=== PATIENT | female | born 1985 | race Caucasian/White ===

== ENCOUNTER 2016-12-30 09:38 | Emergency (ER) | payer OTHER ==
[2016-12-30 09:46] VITALS: BP 140/65; PULSE 89; TEMP 98.3; BMI 26.2
[2016-12-30] MEDS ORDERED: ACETAMINOPHEN 325 MG TABLET (FP) PO ONE (10:54)
[2016-12-30] MEDS ORDERED: ACETAMINOPHEN 325 MG TABLET (FP) ONE (10:57)
--- NOTE | 2016-12-30 10:57 | PDOC ---
History of Present Illness - History of Present Illness Initial Comments: 12/30/16 11:14 31 year old female, with no significant PMH, who presents to the emergency room complaining of 2 days of nonradiating, intermittent and sharp right sided back pain that started yesterday afternoon. The back pain is not worse with movement and mostly hurts when touching it. Denies recent heavy lifting, or trauma. She also complains of a 5 days of runny nose, cough, and congestion. She reports pressure near her nose and teeth. No back pain. hematuria, numbness/tingling/ weakness. Denies fever, chills, nausea, vomiting. Denies abdominal pain. Denies dysuria, hematuria, urinary frequency. Allergies: NKDA 12/30/16 11:19 <Toshia Chinchilla - Last Filed: 12/30/16 11:19> - General History Source: Patient Exam Limitations: No Limitations <Archie Clark - Last Filed: 12/30/16 11:45> - General Chief Complaint: Pain Stated Complaint: RT SIDE PAIN, THROAT PAIN Time Seen by Provider: 12/30/16 10:30 Past History <Toshia Chinchilla - Last Filed: 12/30/16 11:19> - Past Medical History COPD: No Other medical history: NONE - Surgical History Gastric Stapling: No (GASTRIC SLEEVE) - Immunization History Immunization Up to Date: Yes - Suicide/Smoking/Psychosocial Hx Smoking History: Never smoked Have you smoked in the past 12 months: No Number of Cigarettes Smoked Daily: 0 Cigars Per Day: 0 Hx Alcohol Use: Yes (SOCIAL) Drug/Substance Use Hx: No <Archie Clark - Last Filed: 12/30/16 11:45> - Past Medical History Allergies/Adverse Reactions: Allergies Allergy/AdvReac Type Severity Reaction Status Date / Time No Known Drug Allergies Allergy Verified 12/30/16 10:14 coconuts Allergy Difficulty Uncoded 12/30/16 10:14 Breathing Home Medications: Ambulatory Orders Cephalexin Monohydrate [Keflex -] 500 mg PO Q6H #27 capsule 10/31/13 Oxycodone HCl/Acetaminophen [Percocet 5-325 mg Tablet] 1 tab PO Q6H PRN #10 tablet 10/31/13 Sulfamethoxazole/Trimethoprim [Bactrim DS -] 1 tab PO BID #13 tablet 10/31/13 Mupirocin Cream [Bactroban 2% Cream -] 1 applic TP BID #1 tube 11/02/13 Review of Systems - Review of Systems Able to Perform ROS?: Yes Comments:: 12/30/16 11:14 CONSTITUTIONAL: No reported: Fever, Chills, Diaphoresis, Generalized Weakness, Malaise, Loss of Appetite HEENT: Positive:Rhinorrhea, Nasal Congestion, No reported: Throat Pain, Throat Swelling, Difficulty Swallowing, Mouth Swelling , Eye Pain, Visual Changes CARDIOVASCULAR: No reported: Chest Pain, Syncope, Palpitations, Irregular Heart Rate, Lightheadedness, Peripheral Edema RESPIRATORY: + Cough, No reported: Shortness of Breath, SOB with Exertion, Orthopnea, Wheezing, Stridor, Hemoptysis GASTROINTESTINAL: No reported: Abdominal pain, Abdominal Distension, Nausea, Vomiting, Diarrhea, Constipation, Melena, Hematochezia GENITOURINARY: No reported: Dysuria, Frequency, Urgency, Hesitancy, Flank Pain, Genital Pain MUSCULOSKELETAL: Positive: Right sided back pain No reported: Joint Swelling, Neck Pain SKIN: No reported: Rash, Itching, Pallor HEMEATOLOGIC/IMMUNOLOGIC: No reported: Easy Bleeding, Easy Bruising, Lymphadenopathy, Frequent infections ENDOCRINE: No reported: Unexplained Weight Gain, Unexplained Weight Loss, Heat Intolerance , Cold Intolerance NEUROLOGIC: No reported: Headache, Focal Weakness, Paresthesias, Vertigo, Lightheadedness, Unsteady Gait, Seizure, Mental Status Changes, Incontinence PSYCHIATRIC: No reported: Anxiety, Depression 12/30/16 11:19 <Toshia Chinchilla - Last Filed: 12/30/16 11:19> *Physical Exam - Vital Signs Last Vital Signs Temp Pulse Resp BP Pulse Ox 98.3 F 89 20 140/65 98 12/30/16 09:42 12/30/16 09:42 12/30/16 09:42 12/30/16 09:42 12/30/16 09:42 - Physical Exam Comments: 12/30/16 11:14 GENERAL: The patient is awake, alert, and fully oriented, Nontoxic - in no acute distress. HEAD: Normocephalic, atraumatic. EYES: extraocular movements intact, sclera anicteric, conjunctiva clear. ENT: Normal voice, Moist mucous membranes. NECK: Normal range of motion, supple LUNGS: Breath sounds equal, clear to auscultation bilaterally. No wheezes, no rhonchi, no rales. HEART: Regular rate and rhythm, without murmur, rub or gallop. ABDOMEN: Soft, nontender, normoactive bowel sounds. No guarding, no rebound.No CVA tenderness EXTREMITIES: Normal range of motion, no edema. No clubbing or cyanosis. No cords , erythema, or tenderness. BACK: No CVA tenderness. +mild right flank tenderness to palpation (oblique abdomenals) NEUROLOGICAL: No facial asymmetry, Normal speech, PSYCH: Normal mood, normal affect. SKIN: Warm, Dry, normal turgor, 12/30/16 11:19 <Toshia Chinchilla - Last Filed: 12/30/16 11:19> - Vital Signs Last Vital Signs Temp Pulse Resp BP Pulse Ox 98.3 F 89 20 140/65 98 12/30/16 09:42 12/30/16 09:42 12/30/16 09:42 12/30/16 09:42 12/30/16 09:42 <Archie Clark - Last Filed: 12/30/16 11:45> ED Treatment Course - Medications Given in the ED: ED Medications Discontinued Medications Generic Name Dose Route Start Last Admin Trade Name Sher PRN Reason Stop Dose Admin Acetaminophen 650 mg 12/30/16 10:54 12/30/16 11:00 Tylenol - PO 12/30/16 10:55 650 mg ONCE ONE Administration <Toshia Chinchilla - Last Filed: 12/30/16 11:19> Medical Decision Making - Medical Decision Making 12/30/16 10:55 31y F presents with cold like symptoms and right sided pain that is worse with palpation. pt endorses cough, nasal congestion, sore throat. Pt denies any feve/ chills, nausea/vomiting, neck pain, diarrhea, dysuria. supsect her abd pain is uscular as it is exactly reprodicble to touch consider possible kidney stone - will ck ua for blood will give tylenol will obtain UA, hcg 12/30/16 11:42 pt ua / hcg negative suspect her pain is seconday to msk pain will dc the pt with pmd fu supportive care at home I discussed the physical exam findings, ancillary test results and final diagnoses with the patient. I answered all of the patient's questions. The patient was satisfied with the care received and felt comfortable with the discharge plan and treatment plan. The patient will call their primary care physician within 24 hours to arrange follow-up and will return to the Emergency Department with any new, persistent or worsening symptoms. <Archie Clark - Last Filed: 12/30/16 11:45> *DC/Admit/Observation/Transfer - Attestations Scribe Attestion: 12/30/16 11:14 Documentation prepared by TERRENCE Trevino, acting as associate medical director for Archie Clark MD. <Toshia Chinchilla - Last Filed: 12/30/16 11:19> - Discharge Dispostion Admit: No <Archie Clark - Last Filed: 12/30/16 11:45> Diagnosis at time of Disposition: Muscle pain, lumbar Upper respiratory infection Qualifiers: URI type: acute pharyngitis Pharyngitis/tonsillitis etiology: other specified organisms Qualified Code(s): J02.8 - Acute pharyngitis due to other specified organisms - Discharge Dispostion Disposition: HOME Condition at time of disposition: Improved - Referrals Referrals: Mike Bryan MD [Staff Physician] - - Patient Instructions Printed Discharge Instructions: DI for Nasal Congestion, DI for Viral Syndrome , DI for Low Back Pain Additional Instructions: Return to the emergency department immediately with ANY new, persistent or worsening symptoms including numbness, tingling, weakness, fevers or any other concerns. Take ibuprofen (400mg)/tylenol(650mg) every 6 hours for 2 days. Take sudafed for your nasal congestion. STay well hydrated Apply heat to your sore muscles. You MUST call and follow up with your doctor in 3-4 days for further evaluation of your symptoms. Your emergency department visit is not complete without a followup with your doctor for reevaluation.. Results were discussed with you. Please make sure your doctor reviews the results of your emergency evaluation.
[2016-12-30 11:31] LABS: URINE APPEARANCE CLEAR; URINE BILIRUBIN NEGATIVE (NEGATIVE); URINE BLOOD NEGATIVE (NEGATIVE); URINE COLOR LTYELLOW; URINE GLUCOSE (UA) NEGATIVE (NEGATIVE); URINE KETONE NEGATIVE (NEGATIVE); URINE NITRITE NEGATIVE (NEGATIVE); URINE PROTEIN NEGATIVE (NEGATIVE); URINE UROBILINOGEN NEGATIVE mg/dL (0.2-1.0)
[2016-12-30 17:29] LABS: URINE LEUK ESTERASE TRACE (NEGATIVE)
[2016-12-30 22:39] LABS: URINE BACTERIA MODERATE /hpf (NEGATIVE); URINE RBC 0-2 /hpf (0-3); YEAST FEW
== END 2016-12-30 11:52 | disposition home or self-care (01) ==
LOC: JER 09:38
DX: J02.8 Acute pharyngitis due to other specified organisms (principal); M79.1 Myalgia; M54.5 Low back pain
CPT/HCPCS: 81003; 81015; 84703; 99283-25

== ENCOUNTER 2017-05-19 08:38 | Emergency (ER) | payer OTHER ==
[2017-05-19 08:44] VITALS: BP 113/70; PULSE 65; TEMP 98.3; BMI 26.6
[2017-05-19] MEDS ORDERED: KETOROLAC TROMETHAMINE 60 MG/2 ML VIAL ONE (09:55)
[2017-05-19] MEDS ORDERED: KETOROLAC TROMETHAMINE 60 MG/2 ML VIAL IM ONE (09:55)
--- NOTE | 2017-05-19 09:55 | PDOC ---
History of Present Illness - General Chief Complaint: Back Pain Stated Complaint: FALL Time Seen by Provider: 05/19/17 09:16 History Source: Patient Exam Limitations: No Limitations - History of Present Illness Initial Comments: 05/19/17 09:56 Onset of low back pain primarily on the right side 2 weeks ago from unknown cause. States suffers from low back strain some years ago and was told had an L5 disc problem but with physical therapy and rest that resolved. Denies fevers , problems with urine or bowels. Denies recent exercise change , excessive walking or injury 05/19/17 12:45 Occurred: reports: last week Severity: reports: mild, moderate Pain Location: reports: back Method of Injury: Yes: unknown Modifying Factors: improves with: None Associated Symptoms (Fall): denies symptoms Past History - Travel Traveled outside of the country in the last 30 days: No Close contact w/someone who was outside of country & ill: No - Past Medical History Allergies/Adverse Reactions: Allergies Allergy/AdvReac Type Severity Reaction Status Date / Time No Known Drug Allergies Allergy Verified 05/19/17 08:44 coconuts Allergy Difficulty Uncoded 05/19/17 08:44 Breathing Home Medications: Ambulatory Orders Cyclobenzaprine HCl 10 mg PO Q8H PRN #14 tablet 05/19/17 COPD: No - Surgical History Gastric Stapling: No (GASTRIC SLEEVE) - Immunization History Immunization Up to Date: Yes - Suicide/Smoking/Psychosocial Hx Smoking History: Never smoked Have you smoked in the past 12 months: No Number of Cigarettes Smoked Daily: 0 Cigars Per Day: 0 Hx Alcohol Use: Yes (social) Drug/Substance Use Hx: No Review of Systems - Review of Systems Able to Perform ROS?: Yes Is the patient limited Thai proficient: Yes Constitutional: Yes: Symptoms Reported, See HPI, Loss of Appetite, Malaise. No : Chills, Fever HEENTM: Yes: See HPI. No: Symptoms Reported Respiratory: No: Symptoms reported Cardiac (ROS): No: Symptoms Reported ABD/GI: No: Symptoms Reported : No: Symptoms Reported Musculoskeletal: Yes: Symptoms Reported, See HPI, Back Pain Neurological: Yes: Symptoms reported, See HPI All Other Systems: Reviewed and Negative *Physical Exam - Vital Signs Last Vital Signs Temp Pulse Resp BP Pulse Ox 98.3 F 65 20 113/70 100 05/19/17 08:41 05/19/17 08:41 05/19/17 08:41 05/19/17 08:41 05/19/17 08:41 - Physical Exam General Appearance: Yes: Nourished, Appropriately Dressed, Apparent Distress, Mild Distress HEENT: positive: YOUSIF, TMs Normal, Pharynx Normal Respiratory/Chest: positive: Lungs Clear, Normal Breath Sounds Gastrointestinal/Abdominal: positive: Soft Musculoskeletal: positive: Normal Inspection, Decreased Range of Motion, Muscle Spasm (tense tight musculature around paravertebral spinous muscles and lumbar spine. Worse on the left than the right. However both sides are tender. Range of motion is limited secondary to the spasm. Neurovascular intact to feet.). negative: CVA Tenderness (L), Vertebral Tenderness Extremity: positive: Normal Capillary Refill, Normal Range of Motion Integumentary: positive: Normal Color, Dry, Warm. negative: Pale, Rash Neurologic: positive: pl sql programmer II-XII NML intact, Fully Oriented, Alert, Normal Mood/ Affect, Normal Response, Motor Strength 5/5 Progress Note - Progress Note Progress Note: Back strain/spasm. We'll treat with NSAIDs and cyclobenzaprine *DC/Admit/Observation/Transfer Diagnosis at time of Disposition: Back muscle spasm - Discharge Dispostion Disposition: HOME Condition at time of disposition: Stable Admit: No - Prescriptions Prescriptions: Cyclobenzaprine HCl 10 mg PO Q8H PRN #14 tablet PRN Reason: spasm - Referrals - Patient Instructions Printed Discharge Instructions: DI for Back Strain or Sprain Additional Instructions: Rest, no heavy lifting or exercise until pain is resolved Hot soaks to neck and low back as often as possible/hot showers or Jacuzzis No massage or therapy until spasm is gone Continue Tylenol 500mg hours for the next 3 days then as needed for pain and swelling Cyclobenzaprine 1-10mg every 8 hours as needed for spasm If not significant improvement within 24 hours with medication and rest regime, followup with private physician for change in medications and /or therapy. - Post Discharge Activity Forms/Work/School Notes: Back to Work
== END 2017-05-19 10:10 | disposition home or self-care (01) ==
LOC: JERFT 08:38
PROC: 3E0233Z Introduction of Anti-inflammatory into Muscle, Percutaneous Approach (ICD-10-PCS; principal; 2017-05-19)
DX: M62.830 Muscle spasm of back (principal)
CPT/HCPCS: 96372; 99281-25

== ENCOUNTER 2017-10-15 17:05 | Emergency (ER) | payer OTHER ==
[2017-10-15 17:25] VITALS: BP 123/73; PULSE 70; TEMP 97.9; BMI 27.3
--- NOTE | 2017-10-15 17:25 | PDOC ---
Rapid Medical Evaluation Time Seen by Provider: 10/15/17 17:21 Medical Evaluation: Allergies Allergy/AdvReac Type Severity Reaction Status Date / Time No Known Drug Allergies Allergy Verified 05/19/17 08:44 coconuts Allergy Difficulty Uncoded 05/19/17 08:44 Breathing 10/15/17 17:22 31y/o F with chronic back pain with L4-L5 DJD with nerve herniation, pending appt with neuro 11/03/17 p/w worsening LBP since today, denies trauma, B/B incontinence or saddle anesthesia +paraspinal tenderness noted on LS spine, R>L UA ordered Discharge Disposition - Diagnosis Back pain Qualifiers: Back pain location: low back pain Chronicity: chronic Back pain laterality: bilateral Sciatica presence: with sciatica Sciatica laterality: bilateral sciatica Qualified Code(s): M54.42 - Lumbago with sciatica, left side; M54.41 - Lumbago with sciatica, right side; G89.29 - Other chronic pain - Referrals Referrals: Clemencia Choudhary [Primary Care Provider] - - Patient Instructions - Post Discharge Activity
--- NOTE | 2017-10-15 17:44 | PDOC ---
History of Present Illness - General Chief Complaint: Back Pain Stated Complaint: BACK PAIN Time Seen by Provider: 10/15/17 17:21 History Source: Patient Exam Limitations: No Limitations - History of Present Illness Initial Comments: 10/15/17 17:56 CHIEF COMPLAINT: Lower back pain HISTORY OF PRESENT ILLNESS: This 31-year-old woman with history of lower back pain presents emergency Department with acute on chronic pain. Patient states she's had lower back pain for the past 7 months and is scheduled to see a neurosurgeon in October for reevaluation. Patient states she's had multiple x- rays and an MRI which revealed a slipped disc between L4-L5. Patient denies any recent trauma, bowel or bladder incontinence, urinary retention or saddle anesthesia. REVIEW OF SYSTEMS: GENERAL: Afebrile, denies any weakness RESPIRATORY: No cough, wheezing, or hemoptysis. CARDIAC: No chest pain or shortness of breath MUSCULOSKELETAL: Pain to generalized lower back. No point tenderness. Pain worse on right than left. SKIN : No erythema, no bruising, no deformity. GI/: Denies any abdominal pain, no urinary difficulty, incontinence or urinary retention. RECTAL: Denies any difficulty this A.m. NEUROLOGICAL: Denies any numbness or tingling. No neurosensory deficits. PHYSICAL EXAM: GENERAL: The patient is awake, alert, and fully oriented, in no acute distress. RESPIRATORY: Lungs clear bilaterally, no rhonchi wheezes or crackles CARDIAC: S1-S2 audible, no murmur rub or gallop MUSCULOSKELETAL: Pain to generalized lower back, nonradiating, no tingling or sensory deficit. Less than 2 second cap refill, +2 pedal pulses. Spasm present to paraspinous muscles of lower back GI/: Abdomen soft, nontender, nondistended. No rebound tenderness. No masses palpable. MUSCULOSKELETAL: No spinal point tenderness. Normal reflexive and no deficits to sensation or strength. RECTAL: Deferred patient with no neurological findings SKIN: Warm, Dry, normal turgor, no erythema, no edema no bruising. Past History - Past Medical History Allergies/Adverse Reactions: Allergies Allergy/AdvReac Type Severity Reaction Status Date / Time No Known Drug Allergies Allergy Verified 10/15/17 17:22 coconuts Allergy Difficulty Uncoded 10/15/17 17:22 Breathing Home Medications: Ambulatory Orders Methocarbamol [Robaxin -] 1,500 mg PO Q8H PRN #30 tablet 10/15/17 COPD: No Other medical history: DENIES. - Surgical History Gastric Stapling: Yes (GASTRIC SLEEVE) - Immunization History Immunization Up to Date: Yes - Suicide/Smoking/Psychosocial Hx Smoking History: Never smoked Have you smoked in the past 12 months: No Number of Cigarettes Smoked Daily: 0 Cigars Per Day: 0 Hx Alcohol Use: Yes (social) Drug/Substance Use Hx: No *Physical Exam - Vital Signs Last Vital Signs Temp Pulse Resp BP Pulse Ox 97.9 F 70 20 123/73 100 10/15/17 17:22 10/15/17 17:22 10/15/17 17:22 10/15/17 17:22 10/15/17 17:22 Medical Decision Making - Medical Decision Making 10/15/17 17:56 A/P: 31-year-old female with history of L4-L5 herniation with acute on chronic lower back pain Tenderness to palpation in the paraspinous muscles right greater than left Full sensation noted to bilateral lower extremities to both medial and lateral aspects Strength 5/5 bilateral lower extremities Acute exacerbation of chronic lower back pain UA, UPT, Toradol, Valium 10/15/17 19:07 Patient reports her pain is currently 3-4/10. She describes a level of 3 as acceptable is requesting discharge at this time. Patient is able to ambulate after receiving medication. I will discharge the patient home with prescription for Robaxin and patient has been encouraged to follow up with her neurosurgeon as previously scheduled on November 03. *DC/Admit/Observation/Transfer Diagnosis at time of Disposition: Back pain Qualifiers: Back pain location: low back pain Chronicity: chronic Back pain laterality: bilateral Sciatica presence: with sciatica Sciatica laterality: bilateral sciatica Qualified Code(s): M54.42 - Lumbago with sciatica, left side - Discharge Dispostion Disposition: HOME Condition at time of disposition: Stable Decision to Admit order: No - Prescriptions Prescriptions: Methocarbamol [Robaxin -] 1,500 mg PO Q8H PRN #30 tablet PRN Reason: Back Pain - Referrals Referrals: Clemencia Choudhary [Primary Care Provider] - - Patient Instructions Additional Instructions: Rest, no heavy lifting or exercise until pain is resolved Hot soaks to neck and low back as often as possible/hot showers or Jacuzzis No massage or therapy until spasm is gone Continue ibuprofen 2-200 mg tablets every 6 hours for the next 3 days then as needed for pain and swelling Robaxin 1500mg every 8 hours as needed for spasm If not significant improvement within 24 hours with medication and rest regime, followup with private physician for change in medications and /or therapy. - Post Discharge Activity
[2017-10-15 17:49] LABS: URINE APPEARANCE CLEAR; URINE BILIRUBIN NEGATIVE (<2.0 mg/dL); URINE COLOR YELLOW; URINE GLUCOSE (UA) NEGATIVE (NEGATIVE); URINE KETONE TRACE (NEGATIVE); URINE NITRITE NEGATIVE (NEGATIVE); URINE PROTEIN NEGATIVE (NEGATIVE); URINE UROBILINOGEN NEGATIVE mg/dL (0.2-1.0)
[2017-10-15 17:51] LABS: HCG,QUALITATIVE URINE Negative
[2017-10-15 17:54] LABS: URINE LEUK ESTERASE 1+ (NEGATIVE)
[2017-10-15 17:55] LABS: EPI CELLS RARE /HPF (FEW); URINE MUCUS RARE
[2017-10-15] MEDS ORDERED: KETOROLAC TROMETHAMINE 30 MG/1 ML VIAL IM ONE (17:55)
[2017-10-15] MEDS ORDERED: diazePAM 5 MG TABLET PO ONE (17:55)
[2017-10-15] MEDS ORDERED: KETOROLAC TROMETHAMINE 30 MG/1 ML VIAL ONE (17:56)
[2017-10-15] MEDS ORDERED: diazePAM 5 MG TABLET ONE (17:57)
== END 2017-10-15 19:09 | disposition home or self-care (01) ==
LOC: JERFT 17:05
PROC: 3E0233Z Introduction of Anti-inflammatory into Muscle, Percutaneous Approach (ICD-10-PCS; principal; 2017-10-15)
DX: M54.41 Lumbago with sciatica, right side (principal); G89.29 Other chronic pain
CPT/HCPCS: 81003; 81015; 84703; 96372; 99281-25

== ENCOUNTER 2018-05-12 12:11 | Emergency (ER) | payer OTHER ==
[2018-05-12 12:37] VITALS: BP 118/68; PULSE 50; TEMP 98.5; BMI 27.4
[2018-05-12] MEDS ORDERED: KETOROLAC TROMETHAMINE 30 MG/1 ML VIAL IVPUSH ONE (12:46)
[2018-05-12] MEDS ORDERED: METOCLOPRAMIDE HCL INJECTION 10 MG/2 ML VIAL IVPB ONE (12:46)
[2018-05-12] MEDS ORDERED: SODIUM CHLORIDE 1,000 ML IV STA (12:46)
[2018-05-12 13:46] LABS: HCG,QUALITATIVE URINE Negative
[2018-05-12] MEDS ORDERED: METOCLOPRAMIDE HCL INJECTION 10 MG/2 ML VIAL ONE (13:58)
[2018-05-12] MEDS ORDERED: KETOROLAC TROMETHAMINE 30 MG/1 ML VIAL ONE (13:58)
[2018-05-12 14:01] LABS: BASO % 0.9 % (0-2.0); EOS % 1.4 % (0-4.5); HEMATOCRIT 36.9 % (32.4-45.2); HEMOGLOBIN 12.1 GM/dL (10.7-15.3); LYMPH % 47.9 % (8-40); MCHC 32.9 g/dl (32.0-36.0); MEAN PLT VOLUME 8.1 fl (7.5-11.1); NEUT % 44.8 % (42.8-82.8); PLATELET COUNT 229 K/MM3 (134-434); RBC 4.34 M/mm3 (3.60-5.2); RDW 12.9 % (11.6-15.6)
--- NOTE | 2018-05-12 14:07 | PDOC ---
History of Present Illness - General Chief Complaint: Headache Stated Complaint: HEADACHE Time Seen by Provider: 05/12/18 12:45 History Source: Patient Exam Limitations: No Limitations - History of Present Illness Initial Comments: 05/12/18 14:18 32-year-old female presents to ED with complaints of right temporal and right retro-orbital throbbing pressure including photosensitivity intermittently since Wednesday now constant for the past 24 hours. Patient states has taken Motrin Tylenol minimal relief and denies history of migraine. Patient states no recent travel, recent injury, visual changes, fever, chills or neck pain. Patient does complain of nausea without vomiting. Timing/Duration: reports: 1 week, waxing and waning Severity: Yes: moderate Associated Symptoms: reports: nausea/vomiting, other Past History - Travel Traveled outside of the country in the last 30 days: No Close contact w/someone who was outside of country & ill: No - Past Medical History Allergies/Adverse Reactions: Allergies Allergy/AdvReac Type Severity Reaction Status Date / Time No Known Drug Allergies Allergy Verified 05/12/18 12:36 coconuts Allergy Difficulty Uncoded 05/12/18 12:36 Breathing Home Medications: Ambulatory Orders Methocarbamol [Robaxin -] 1,500 mg PO Q8H PRN #30 tablet 10/15/17 COPD: No - Surgical History Gastric Stapling: Yes (GASTRIC SLEEVE) - Immunization History Immunization Up to Date: Yes - Suicide/Smoking/Psychosocial Hx Smoking History: Never smoked Have you smoked in the past 12 months: No Number of Cigarettes Smoked Daily: 0 Cigars Per Day: 0 Information on smoking cessation initiated: No Hx Alcohol Use: No Drug/Substance Use Hx: No Patient Lives Alone: No Lives with/in: spouse/SO Review of Systems - Review of Systems Able to Perform ROS?: No Is the patient limited Haitian proficient: No Constitutional: No: Symptoms Reported HEENTM: No: Symptoms Reported Respiratory: No: Symptoms reported Cardiac (ROS): No: Symptoms Reported ABD/GI: Yes: Nausea : No: Symptoms Reported Musculoskeletal: No: Symptoms Reported Integumentary: No: Symptoms Reported Neurological: Yes: Headache. No: Numbness, Weakness, Dizziness *Physical Exam - Vital Signs Last Vital Signs Temp Pulse Resp BP Pulse Ox 98.5 F 50 L 17 118/68 98 05/12/18 12:35 05/12/18 12:35 05/12/18 12:35 05/12/18 12:35 05/12/18 12:35 - Physical Exam General Appearance: Yes: Nourished, Appropriately Dressed. No: Apparent Distress HEENT: positive: EOMI, YOUSIF, TMs Normal, Pharynx Normal. negative: Pale Conjunctivae Neck: positive: Supple Respiratory/Chest: positive: Lungs Clear, Normal Breath Sounds. negative: Respiratory Distress, Accessory Muscle Use Cardiovascular: positive: Regular Rhythm, Bradycardia. negative: Murmur Gastrointestinal/Abdominal: positive: Soft. negative: Tenderness Integumentary: positive: Normal Color, Warm, Moist Neurologic: positive: Motor Strength 5/5 (ambulatory) ED Treatment Course - LABORATORY CBC & Chemistry Diagram: 05/12/18 13:52 05/12/18 13:52 Medical Decision Making - Medical Decision Making 05/12/18 14:01 Chief complaint: Right retro-orbital headache intimately for the past week now with photosensitivity. Patient with no history of migraine minimal relief with NSAIDs Exam: No neural focal deficit patient sensitive to ophthalmoscope Plan: Labs, urine urine , head CT fluids Toradol and Reglan 05/12/18 14:22 Laboratory Tests 05/12/18 05/12/18 13:25 13:52 WBC 4.0 Hgb 12.1 Hct 36.9 Absolute Neuts (auto) 1.8 Lymphocytes % 47.9 H Urine HCG, Qual Negative 05/12/18 15:23 Laboratory Tests 05/12/18 05/12/18 13:25 13:52 Sodium 138 Potassium 4.1 Chloride 106 Carbon Dioxide 24 Anion Gap 7 L BUN 13 Creatinine 0.6 Random Glucose 80 Calcium 8.3 L Total Bilirubin 0.2 AST 14 L ALT 11 L Alkaline Phosphatase 44 L Albumin 3.2 L Urine Ketones 1+ H Urine Blood Trace Ur Leukocyte Esterase Negative Urine WBC (Auto) 2.4 Urine RBC (Auto) 1.[address] - for acute pathology. Pt states feeling much better and has no complaints presently. Discharge home w/ fioricet and neuro f/u. *DC/Admit/Observation/Transfer Diagnosis at time of Disposition: Headache - Discharge Dispostion Disposition: HOME Condition at time of disposition: Improved - Referrals Referrals: Quan Santizo MD [Staff Physician] - - Patient Instructions Printed Discharge Instructions: DI for Headache Additional Instructions: Please follow up with neurologist and take medication as needed for severe pain - Post Discharge Activity
[2018-05-12 14:24] LABS: URINE APPEARANCE CLEAR; URINE BILIRUBIN NEGATIVE (NEGATIVE); URINE COLOR YELLOW; URINE GLUCOSE (UA) NEGATIVE (NEGATIVE); URINE KETONE 1+ (NEGATIVE); URINE LEUK ESTERASE NEGATIVE (NEGATIVE); URINE NITRITE NEGATIVE (NEGATIVE); URINE PROTEIN NEGATIVE (NEGATIVE); URINE UROBILINOGEN 0.2 mg/dL (0.2-1.0)
[2018-05-12 14:40] LABS: ALBUMIN 3.2 g/dl (3.4-5.0); ALK PHOS 44 U/L (45-117); ANION GAP 7 MMOL/L (8-16); BILIRUBIN,TOTAL 0.2 mg/dL (0.2-1); BLOOD UREA NITROGEN 13 mg/dL (7-18); CALCIUM 8.3 mg/dL (8.5-10.1); CHLORIDE 106 mmol/L (98-107); CO2 24 mmol/L (21-32); CREATININE 0.6 mg/dL (0.55-1.3); GLUCOSE,RANDOM 80 mg/dL (74-106); POTASSIUM 4.1 mmol/L (3.5-5.1); SGOT/AST 14 U/L (15-37); SGPT/ALT 11 U/L (13-61); SODIUM 138 mmol/L (136-145); TOT PROT 6.5 g/dl (6.4-8.2)
--- NOTE | 2018-05-12 14:43 | PDOC ---
*Physical Exam - Vital Signs Last Vital Signs Temp Pulse Resp BP Pulse Ox 98.5 F 50 L 17 118/68 98 05/12/18 12:35 05/12/18 12:35 05/12/18 12:35 05/12/18 12:35 05/12/18 12:35 ED Treatment Course - LABORATORY CBC & Chemistry Diagram: 05/12/18 13:52 05/12/18 13:52 - ADDITIONAL ORDERS Additional order review: Laboratory Results 05/12/18 05/12/18 13:52 13:25 Sodium 138 Potassium 4.1 Chloride 106 Carbon Dioxide 24 Anion Gap 7 L BUN 13 Creatinine 0.6 Creat Clearance w eGFR 115.85 Random Glucose 80 Calcium 8.3 L Total Bilirubin 0.2 AST 14 L ALT 11 L Alkaline Phosphatase 44 L Total Protein 6.5 Albumin 3.2 L Urine HCG, Qual Negative 05/12/18 13:52 RBC 4.34 MCV 85.0 MCHC 32.9 RDW 12.9 MPV 8.1 Neutrophils % 44.8 Lymphocytes % 47.9 H Monocytes % 5.0 Eosinophils % 1.4 Basophils % 0.9 - Medications Given in the ED: ED Medications Discontinued Medications Generic Name Dose Route Start Last Admin Trade Name Freq PRN Reason Stop Dose Admin Sodium Chloride 1,000 mls @ 1,000 mls/hr 05/12/18 12:46 05/12/18 14:06 Normal Saline - IV 05/12/18 13:45 1,000 mls/hr ASDIR STA Administration Ketorolac Tromethamine 30 mg 05/12/18 12:46 05/12/18 14:06 Toradol Injection - IVPUSH 05/12/18 12:47 30 mg ONCE ONE Administration Metoclopramide HCl 10 mg 05/12/18 12:46 05/12/18 14:06 Reglan Injection - IVPB 05/12/18 12:47 10 mg ONCE ONE Administration Medical Decision Making - Medical Decision Making 05/12/18 14:43 Pt seen by the Advanced Practice Provider under my direct supervision Ancillary studies reviewed I agree with plan as outlined by the Advanced Practice Provider KATHI Bernabe *DC/Admit/Observation/Transfer - Referrals Referrals: Clemencia Choudhary [Primary Care Provider] - - Patient Instructions - Post Discharge Activity
[2018-05-12 14:48] LABS: EPI CELLS 1.8 /HPF (0-5); URINE BACTERIA 73.5 /hpf (NEGATIVE); URINE CASTS 0.35 /hpf (0-8); URINE RBC 1.3 /hpf (0-4); URINE WBC 2.4 /hpf (0-5)
== END 2018-05-12 15:42 | disposition home or self-care (01) ==
LOC: JER 12:11
PROC: 3E0333Z Introduction of Anti-inflammatory into Peripheral Vein, Percutaneous Approach (ICD-10-PCS; principal; 2018-05-12)
PROC: 3E033GC Introduction of Other Therapeutic Substance into Peripheral Vein, Percutaneous Approach (ICD-10-PCS; 2018-05-12)
DX: R51 Headache (principal)
CPT/HCPCS: 36415; 70450-TC; 80053; 81003; 84703; 85025; 99281-25; J7030

== ENCOUNTER 2018-06-01 18:08 | Emergency (ER) | payer OTHER ==
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
[2018-06-01 18:31] VITALS: BP 119/67; PULSE 61; TEMP 97.8; BMI 29.0
[2018-06-01] MEDS ORDERED: KETOROLAC TROMETHAMINE 60 MG/2 ML VIAL IM ONE (19:07)
[2018-06-01] MEDS ORDERED: KETOROLAC TROMETHAMINE 60 MG/2 ML VIAL ONE (19:08)
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
== END 2018-06-01 19:45 | disposition home or self-care (01) ==
LOC: JERFT 18:08
PROC: 3E0233Z Introduction of Anti-inflammatory into Muscle, Percutaneous Approach (ICD-10-PCS; principal; 2018-06-01)
DX: Z98.84 Bariatric surgery status (principal); M54.5 Low back pain; V43.52XA Car driver injured in collision with other type car in traffic accident, initial encounter; Y93.89 Activity, other specified; Y92.410 Unspecified street and highway as the place of occurrence of the external cause
CPT/HCPCS: 72100-TC-FY; 99281-25

== ENCOUNTER 2018-10-31 19:14 | Emergency (ER) | payer OTHER | END 2018-10-31 20:51 | disposition home or self-care (01) | LOC: JERFT 19:14 ==

== ENCOUNTER 2020-03-29 08:41 | Emergency (ER) | payer OTHER ==
[2020-03-29 08:52] VITALS: BMI 29.2
[2020-03-29] MEDS ORDERED: SODIUM CHLORIDE 0.9% 500 ML INFUS.BAG IV ONE (10:57)
[2020-03-29 11:53] LABS: URINE APPEARANCE CLEAR; URINE BILIRUBIN NEGATIVE (NEGATIVE); URINE COLOR YELLOW; URINE GLUCOSE (UA) NEGATIVE (NEGATIVE); URINE KETONE TRACE (NEGATIVE); URINE LEUK ESTERASE NEGATIVE (NEGATIVE); URINE NITRITE NEGATIVE (NEGATIVE); URINE PROTEIN NEGATIVE (NEGATIVE); URINE UROBILINOGEN 0.2 mg/dL (0.2-1.0)
[2020-03-29 12:08] LABS: BASO % 0.3 % (0-2.0); EOS % 1.2 % (0-4.5); HEMATOCRIT 28.7 % (32.4-45.2); HEMOGLOBIN 9.6 GM/dL (10.7-15.3); LYMPH % 26.1 % (8-40); MCH 27.4 pg (25.7-33.7); MCHC 33.5 g/dl (32.0-36.0); MEAN CELL VOLUME 81.7 fl (80-96); MEAN PLT VOLUME 8.2 fl (7.5-11.1); MONO % 6.3 % (3.8-10.2); NEUT % 66.1 % (42.8-82.8); PLATELET COUNT 244 K/MM3 (134-434); RBC 3.51 M/mm3 (3.60-5.2); RDW 14.1 % (11.6-15.6)
[2020-03-29 12:48] LABS: POTASSIUM 4.6 mmol/L (3.5-5.1)
[2020-03-29 12:50] LABS: CALCIUM 8.6 mg/dL (8.5-10.1)
[2020-03-29 12:51] LABS: BLOOD UREA NITROGEN 13.1 mg/dL (7-18)
[2020-03-29 12:54] LABS: CREATININE 0.7 mg/dL (0.55-1.3)
[2020-03-29 12:55] LABS: TOT PROT 6.6 g/dl (6.4-8.2)
[2020-03-29 12:56] LABS: BILIRUBIN,TOTAL 0.9 mg/dL (0.2-1)
[2020-03-29 14:53] VITALS: BP 110/70; PULSE 68; TEMP 98.4
== END 2020-03-29 14:50 | disposition home or self-care (01) ==
LOC: JER 08:41
DX: O24.419 Gestational diabetes mellitus in pregnancy, unspecified control (principal); R55 Syncope and collapse; Z3A.26 26 weeks gestation of pregnancy
CPT/HCPCS: 36415; 76815; 80053; 81003; 82962; 85025; 87077; 87086; 87186; 93005; 93010; 93308; 99285-25

== ENCOUNTER 2023-06-03 09:09 | Emergency (ER) | payer OTHER ==
[2023-06-03] MEDS ORDERED: ONDANSETRON 4 MG/2 ML VIAL ONE ×2 (09:36→09:45)
[2023-06-03] MEDS ORDERED: ACETAMINOPHEN INJECTION 100 ML IVPB ONE (09:36)
[2023-06-03] MEDS ORDERED: FAMOTIDINE 20 MG/50 ML IVPB 20 MG/50 ML MG IVPB ONE (09:45)
[2023-06-03 09:48] LABS: HEMATOCRIT 45.8 % (32.4-45.2); HEMOGLOBIN 15.3 G/dL (10.7-15.3); MCH 30.2 pg (25.7-33.7); MCHC 33.4 g/dl (32.0-36.0); MEAN CELL VOLUME 90.6 fl (80-96); MEAN PLT VOLUME 8.5 fl (7.5-11.1); PLATELET COUNT 159.4 10^3/uL (134-434); RBC 5.06 10^6/uL (3.60-5.2); RDW 14.1 % (11.6-15.6); WHITE BLOOD COUNT 3.8 10^3/uL (4.0-10.8)
[2023-06-03] MEDS: SODIUM CHLORIDE 0.9% 500 ML INFUS.BAG IV ONE (09:54)
[2023-06-03] MEDS: ONDANSETRON 4 MG/2 ML VIAL IVPUSH ONE ×2 (09:55)
[2023-06-03] MEDS: ACETAMINOPHEN 1000 MG/100 ML BAG IVPB ONE (09:55)
[2023-06-03] MEDS: FAMOTIDINE 20 MG/50 ML IVPB 20 MG/50 ML MG IVPB ONE (09:55)
[2023-06-03 09:56] LABS: ALBUMIN 4.3 g/dl (3.4-5.0); ALK PHOS 55 U/L (45-117); ANION GAP 7 mmol/L (4-13); BILIRUBIN,TOTAL 0.7 mg/dl (0.2-1); CHLORIDE 105 mmol/L (98-107); CO2 26 mmol/L (21-32); CREATININE 0.9 mg/dl (0.6-1.3); GLUCOSE,RANDOM 104 mg/dl (74-106); POTASSIUM 4.1 mmol/L (3.5-5.1); SGOT/AST 19 U/L (15-37); SGPT/ALT 15 U/L (7-52); SODIUM 138 mmol/L (136-145); TOT PROT 6.3 g/dl (6.4-8.2)
[2023-06-03 09:58] LABS: PLATELET ESTIMATE ADEQUATE
[2023-06-03 12:14] VITALS: BP 96/63; PULSE 100; RESP 18; TEMP 99.2; BMI 27.4
== END 2023-06-03 12:36 | disposition home or self-care (01) ==
LOC: FER 09:09
PROC: 3E033GC Introduction of Other Therapeutic Substance into Peripheral Vein, Percutaneous Approach (ICD-10-PCS; principal; 2023-06-03)
PROC: 3E033GC Introduction of Other Therapeutic Substance into Peripheral Vein, Percutaneous Approach (ICD-10-PCS; 2023-06-03)
PROC: 3E033NZ Introduction of Analgesics, Hypnotics, Sedatives into Peripheral Vein, Percutaneous Approach (ICD-10-PCS; 2023-06-03)
DX: R11.2 Nausea with vomiting, unspecified (principal); R19.7 Diarrhea, unspecified; K52.9 Noninfective gastroenteritis and colitis, unspecified; R10.10 Upper abdominal pain, unspecified; R53.1 Weakness; R52 Pain, unspecified
CPT/HCPCS: 36415; 74177-TC; 80053; 81003; 81025; 83690; 84702; 85025; 99285-25; J0131; Q9967